=== PATIENT | male | born 1970 | race Caucasian/White ===

== ENCOUNTER 2024-11-29 07:46 | Observation (INO) ==
[~2024-11-29 07:46] MED LIST: Metoclopramide 5 MG/ML VIAL (10 mg) IV PRN; Naloxone 0.4 mg VIAL 0.4 mg/ml 1 ml VIAL IV PRN; Ondansetron 4 mg VIAL 2 MG/ML 2 ml VIAL IV PRN
[2024-11-29] MEDS: Buffered Lidocaine 1% SYRIN 1 ml INTRADERM ONE (08:00)
[2024-11-29 08:16] LABS: Rapid COVID-19 Molecular Undetected (Undetected)
[2024-11-29] MEDS: Scopolamine 1 mg/72hr PATCH TRANSDERM ONE (08:33)
[2024-11-29] MEDS ORDERED: Tranexamic Acid 1 GM/100ML BAG 2,000 MG/200 ML BAG IV ONE (08:37)
[2024-11-29] MEDS ORDERED: ceFAZolin 1 GM in Dextrose 1 GM/50 ML BAG ONE (08:37)
[2024-11-29] MEDS ORDERED: ceFAZolin 2 GM PREMIX 2 GM/50 ML BAG ONE (08:37)
[2024-11-29] MEDS: Lactated Ringers 1000 ml BAG 1,000 ML IV SCH ×2 (08:41→16:26)
[2024-11-29] MEDS ORDERED: Lidocaine 2% PF 5 ML VIAL ONE (09:38)
[2024-11-29] MEDS ORDERED: fentaNYL 100 mcg/2 ml 50 MCG/ML VIAL ONE ×5 (09:38→14:49)
[2024-11-29] MEDS ORDERED: Glycopyrrolate IV 0.2 MG/ML 1 ML VIAL ONE (09:38)
[2024-11-29] MEDS ORDERED: Propofol 10 MG/ML 20 ML BTL ONE ×2 (09:55→14:01)
[2024-11-29] MEDS ORDERED: Midazolam 2 mg/2 ml VIAL 1 mg/ml 2 ml VIAL (2 mg) ONE (09:55)
[2024-11-29] MEDS ORDERED: Dexamethasone IV 4 MG/ML VIAL 1 ml VIAL ONE ×2 (09:55→10:26)
[2024-11-29] MEDS ORDERED: Ondansetron 4 mg VIAL 2 MG/ML 2 ml VIAL ONE (09:55)
[2024-11-29] MEDS ORDERED: Phenylephrine IV 10 MG/ML 1 ml VIAL ONE (10:03)
[2024-11-29] MEDS ORDERED: ROPIVACAINE 5 MG/ML 30 ML BTL (0.5%) ONE ×2 (10:26→11:12)
[2024-11-29] MEDS ORDERED: Succinylcholine 200 mg VIAL 20 mg/ml 10 ml VIAL (200 mg) ONE (11:20)
[2024-11-29] MEDS ORDERED: Ondansetron ODT 4 mg TAB 4 MG TAB PO PRN ×2 (14:39→14:46)
[2024-11-29] MEDS ORDERED: Magnesium Hydroxide LIQ 30 ML UDC PO PRN ×2 (14:39→14:46)
[2024-11-29] MEDS ORDERED: Ondansetron 4 mg VIAL 2 MG/ML 2 ml VIAL IV PRN ×2 (14:39→14:46)
[2024-11-29] MEDS ORDERED: Lactulose 30 ml UDC PO PRN ×2 (14:39→14:46)
[2024-11-29] MEDS ORDERED: Calcium Carb (TUMS) 500 mg CHEW TAB PO PRN ×2 (14:39→14:46)
[2024-11-29] MEDS ORDERED: Morphine 2 MG/ML SYRINGE IV PRN (14:46)
[2024-11-29] MEDS: fentaNYL 100 mcg/2 ml 50 MCG/ML VIAL IV PRN (14:59)
[2024-11-29] MEDS ORDERED: ceFAZolin *3* GM in NS PREMIX 3 GM/100 ML BAG IV SCH (15:00)
[2024-11-29] MEDS ORDERED: HYDROmorphone 1 MG/1 ML SYRINGE ONE (15:05)
[2024-11-29] MEDS: HYDROmorphone 0.5 MG/0.5 ML SYRINGE IV SLOW PU ONE (15:10)
[2024-11-29] MEDS: Acetaminophen IV 1 GM/100ML 1,000 MG/100 ML BAG IV ONE (15:55)
[2024-11-29] MEDS: ceFAZolin 2 GM PREMIX 2 GM/50 ML BAG IV SCH ×2 (17:17→20:07)
[2024-11-29] MEDS: ceFAZolin 1 GM in Dextrose 1 GM/50 ML BAG IVPB SCH ×2 (17:17→20:42)
[2024-11-29] MEDS: Magnesium Hydroxide LIQ 30 ML UDC PO SCH (19:34)
[2024-11-29] MEDS ORDERED: Magnesium Hydroxide LIQ 30 ML UDC PO SCH (21:00)
[2024-11-30 05:51] LABS: Hematocrit 37.5 % (38-53); Hemoglobin 12.6 g/dL (13.2-16.3); Mean Platelet Volume 10.9 fL (7.5-11.2); Platelet Count 216 10^3/uL (150-450)
[2024-11-30 06:16] LABS: Calcium 8.9 mg/dL (8.6-10.3); Creatinine, Serum 1.1 mg/dL (0.67-1.17); Potassium 4.2 mmol/L (3.5-5.0); eGFR CKD-EPI 78.8 (>60)
[2024-11-30] MEDS: Vitamin THERAPEUTIC TAB PO SCH (08:21)
[2024-11-30] MEDS ORDERED: Vitamin THERAPEUTIC TAB PO SCH (09:00)
[2024-11-30 09:50] VITALS: BP 111/69
[2024-11-30] MEDS: Morphine ER 15 mg TAB ** extended release PO SCH (11:39)
== END 2024-11-30 14:25 | disposition home or self-care (01) ==
LOC: SSU 07:46 → OR 07:46
PROVIDERS: ADMIT Orthopaedic Surgery Adult Reconstructive Orthopaedic Surgery; ATTEND Orthopaedic Surgery Adult Reconstructive Orthopaedic Surgery